=== PATIENT | female | born 1970 | race Two or more races ===

== ENCOUNTER 2020-07-15 19:33 | Inpatient (IN) | payer MEDICAID ==
[~2020-07-15] VITALS: Ht 167.6 cm; Wt 65.1 kg
--- NOTE | 2020-07-15 19:33 | NUR ---
PRECEPTOR RN: INITIAL PT CONTACT. PT PRESENTS TO ED C/O N/V/D X4 HOURS. PT ALSO C/O SERRATO, "FEELS LIKE A MIGRAINE STARTING UP." ALSO C/O "LITTLE BIT OF DARK RED COLOR TO MY STOOL." PIV STARTED EN ROUTE AND PT GIVEN APPROX 250ML NS. PT MOVED FROM EMS [place] TO ED [place], [place], ANTONIO. PT PLACED ON CONTINUOUS PULSE OX AND CARDIAC MONITORING. CALL LIGHT AND BELONGINGS WITHIN REACH. ERP AT BEDSIDE.
[2020-07-15] MEDS ORDERED: METOCLOPRAMIDE 5 MG/ML, 2ML ONE (19:54)
[2020-07-15] MEDS ORDERED: DIPHENHYDRAMINE 50 MG/ML, 1ML ONE (19:54)
--- NOTE | 2020-07-15 19:59 | NUR ---
PT MEDICATED, RESTING COMFORTABLY ON GURNEY, DENIES NEEDS AT THIS TIME
[2020-07-15] MEDS ORDERED: METOCLOPRAMIDE 5 MG/ML, 2ML IVPush ONE (20:00)
[2020-07-15] MEDS ORDERED: DIPHENHYDRAMINE 50 MG/ML, 1ML IV ONE (20:00)
[2020-07-15] MEDS ORDERED: SODIUM CHLORIDE FLUSH 10ML SYR IVF ONE (20:00)
[2020-07-15] MEDS ORDERED: SODIUM CHLORIDE 0.9% 1,000ML IVBOLUS ONE ×2 (20:00→21:00)
[2020-07-15 20:03] LABS: MEAN CORPUSCULAR HEMOGLOBIN 30.7 pg (27.0-34.8); MEAN CORPUSCULAR HGB CONC 33.6 g/dL (32.4-35.8); MEAN PLATELET VOLUME 9.3 fL (7.4-10.4); PLATELET COUNT 188 x10^3/uL (130-400); RED BLOOD COUNT 4.51 x10^6/uL (3.82-5.3); RED CELL DISTRIBUTION WIDTH 13.9 % (9.6-15.2)
[2020-07-15 20:12] LABS: ALANINE AMINOTRANSFERASE 17 U/L (12-78); ALBUMIN 3.4 g/dL (3.4-5.0); ANION GAP 3 mmol/L (5-15); CALCIUM 8.3 mg/dL (8.5-10.1); CHLORIDE 109 mmol/L (98-107); CREATININE 0.78 mg/dL (0.55-1.02)
[2020-07-15 20:14] LABS: ALKALINE PHOSPHATASE 44 U/L (45-117); BILIRUBIN,TOTAL 0.7 mg/dL (0.2-1.0); TOTAL PROTEIN 6.5 g/dL (6.4-8.2)
[2020-07-15 20:26] LABS: BAND#(MANUAL) 3.61 x10^3/uL; BANDS%(MANUAL) 23 % (0-7); LYMPH#(MANUAL) 0.94 x10^3/uL (1-3.4); LYMPHS% (MANUAL) 6 % (22-44); MONOS#(MANUAL) 0.94 x10^3/uL (0.3-2.7); MONOS% (MANUAL) 6 % (2-9); SEG#(MANUAL) 10.21 x10^3/uL (1.8-6.8); SEGS% (MANUAL) 65 % (42-75)
[2020-07-15 20:27] LABS: <PLATELET ESTIMATE> ADEQUATE; <PLT MORPHOLOGY> NORMAL PLT MORPH; <RBC MORPHOLOGY> NORMAL
[2020-07-15] MEDS ORDERED: OMNIPAQUE 350 MG/ML, 100ML BOTTLE ONE (20:30)
[2020-07-15] MEDS ORDERED: PIPERACILLIN/TAZO 3.375 GM in DEXTROSE 5% 50 ML IVPB ONE (21:00)
--- NOTE | 2020-07-15 21:04 | NUR ---
BLOOD CULTURES COLLECTED, ABX STARTED, PT RESTING COMFORTABLY ON BED, PT STATES SHE IS FEELING A LITTLE BETTER, DENIES NEEDS AT THIS TIME
--- NOTE | 2020-07-15 21:56 | NUR ---
THIS RN TOOK PT TO THE BATHROOM, SENT UA, GOT PT PILLOW AND WARM BLANKET, DENIES ANY MORE NEEDS AT THIS TIME
[2020-07-15] MEDS ORDERED: MORPHINE SULFATE 4 MG/ML, 1ML ONE ×2 (22:08→22:47)
[2020-07-15 22:09] LABS: MICROSCOPIC NOT IND
[2020-07-15] MEDS: MORPHINE SULFATE 4 MG/ML, 1ML IVPush PRN ×2 (22:11→22:49)
[2020-07-15] MEDS ORDERED: ONDANSETRON 2MG/ML, 2ML ONE (22:47)
--- NOTE | 2020-07-15 22:54 | NUR ---
HOSPITALIST AT BEDSIDE, PT MEDICATED, RESTING ON GURNEY, DENIES NEEDS AT THIS TIME
[2020-07-15] MEDS ORDERED: SODIUM CHLORIDE 0.9% 1,000 ML IV ONE (23:00)
[2020-07-15] MEDS ORDERED: MORPHINE SULFATE 4 MG/ML, 1ML IVPush PRN (23:00)
[2020-07-15] MEDS ORDERED: ONDANSETRON 2MG/ML, 2ML IVPush PRN (23:00)
--- NOTE | 2020-07-15 23:37 | NUR ---
REPORT CALLED TO SHANNON PT RESTING ON LEONID, DENIES NEEDS AT THIS TIME
[2020-07-16] MEDS ORDERED: ONDANSETRON 2MG/ML, 2ML IVPush PRN
[2020-07-16] MEDS ORDERED: ACETAMINOPHEN 325 MG TABLET PO PRN
[2020-07-16 00:10] VITALS: BP 137/73
[2020-07-16] MEDS: NS + 20MEQ KCL 1,000 ML IV SCH ×3 (00:37→16:23)
[2020-07-16] MEDS ORDERED: MAGNESIUM SULFATE PMX 2GM/50ML 50 ML IV ONE ×2 (01:00→18:30)
[2020-07-16 01:28] LABS: CLOSTRIDIUM DIFFICILE ANTIGEN NEGATIVE; CLOSTRIDIUM DIFFICILE TOXIN NEGATIVE (Negative)
[2020-07-16] MEDS: PIPERACILLIN/TAZO 3.375 GM in DEXTROSE 5% 50 ML IV SCH ×4 (02:50→21:04)
[2020-07-16 03:10] VITALS: BP 130/72
[2020-07-16 05:21] LABS: ANION GAP 3 mmol/L (5-15); BASOPHILS % (AUTO) 0 % (0-1); CALCIUM 6.7 mg/dL (8.5-10.1); CHLORIDE 110 mmol/L (98-107); EOSINOPHILS % (AUTO) 4 % (1-7); LYMPHOCYTES % (AUTO) 16 % (22-44); MEAN CORPUSCULAR HEMOGLOBIN 31.5 pg (27.0-34.8); MEAN CORPUSCULAR HGB CONC 34.1 g/dL (32.4-35.8); MEAN PLATELET VOLUME 9.6 fL (7.4-10.4); MONOCYTES % (AUTO) 9 % (2-9); NEUTROPHILS % (AUTO) 70 % (42-75); PLATELET COUNT 162 x10^3/uL (130-400); RED BLOOD COUNT 3.97 x10^6/uL (3.82-5.3); RED CELL DISTRIBUTION WIDTH 13.8 % (9.6-15.2)
[2020-07-16 05:24] LABS: CREATININE 0.79 mg/dL (0.55-1.02)
[2020-07-16 06:59] VITALS: BP 116/70
[2020-07-16 09:04] LABS: CRYPTOSPORIDIUM ANTIGEN Negative (Negative)
[2020-07-16 14:05] VITALS: BP 117/74
[2020-07-16] MEDS: morphine SULFATE 10 MG/ML, 1ML IVPush PRN ×2 (14:57→21:11)
[2020-07-16 20:13] VITALS: BP 143/89
[2020-07-16] MEDS: LACTOBACILLUS 1GM/ PACKET PO SCH (21:04)
[2020-07-17 00:44] VITALS: BP 120/71
[2020-07-17] MEDS: PIPERACILLIN/TAZO 3.375 GM in DEXTROSE 5% 50 ML IV SCH ×4 (03:27→21:05)
[2020-07-17 05:21] LABS: BASOPHILS % (AUTO) 0 % (0-1); EOSINOPHILS % (AUTO) 8 % (1-7); LYMPHOCYTES % (AUTO) 31 % (22-44); MEAN CORPUSCULAR HEMOGLOBIN 31.5 pg (27.0-34.8); MEAN CORPUSCULAR HGB CONC 34.2 g/dL (32.4-35.8); MEAN PLATELET VOLUME 9.4 fL (7.4-10.4); MONOCYTES % (AUTO) 9 % (2-9); NEUTROPHILS % (AUTO) 52 % (42-75); PLATELET COUNT 156 x10^3/uL (130-400); RED BLOOD COUNT 3.97 x10^6/uL (3.82-5.3); RED CELL DISTRIBUTION WIDTH 14.2 % (9.6-15.2)
[2020-07-17 05:27] LABS: CHLORIDE 110 mmol/L (98-107)
[2020-07-17 05:31] LABS: ANION GAP 3 mmol/L (5-15); CREATININE 0.74 mg/dL (0.55-1.02)
[2020-07-17 07:09] VITALS: BP 138/76
[2020-07-17] MEDS: LACTOBACILLUS 1GM/ PACKET PO SCH ×3 (07:46→21:05)
[2020-07-17] MEDS: morphine SULFATE 10 MG/ML, 1ML IVPush PRN ×3 (07:46→19:58)
[2020-07-17 14:06] VITALS: BP 151/91
[2020-07-17 20:01] VITALS: BP 144/84
[2020-07-18] MEDS: PIPERACILLIN/TAZO 3.375 GM in DEXTROSE 5% 50 ML IV SCH ×4 (03:06→20:40)
[2020-07-18 03:08] VITALS: BP 151/92
[2020-07-18 04:43] LABS: BASOPHILS % (AUTO) 1 % (0-1); EOSINOPHILS % (AUTO) 9 % (1-7); LYMPHOCYTES % (AUTO) 25 % (22-44); MEAN CORPUSCULAR HEMOGLOBIN 31.6 pg (27.0-34.8); MEAN CORPUSCULAR HGB CONC 34.4 g/dL (32.4-35.8); MEAN PLATELET VOLUME 9.7 fL (7.4-10.4); MONOCYTES % (AUTO) 8 % (2-9); NEUTROPHILS % (AUTO) 58 % (42-75); PLATELET COUNT 164 x10^3/uL (130-400); RED BLOOD COUNT 4.23 x10^6/uL (3.82-5.3); RED CELL DISTRIBUTION WIDTH 13.8 % (9.6-15.2)
[2020-07-18 04:57] LABS: ANION GAP 6 mmol/L (5-15); CALCIUM 7.8 mg/dL (8.5-10.1); CHLORIDE 107 mmol/L (98-107); CREATININE 0.73 mg/dL (0.55-1.02)
[2020-07-18 07:57] VITALS: BP 149/83
[2020-07-18] MEDS ORDERED: POTASSIUM CHLORIDE 20 MEQ TAB.ER.PRT PO ONE (08:30)
[2020-07-18] MEDS: morphine SULFATE 10 MG/ML, 1ML IVPush PRN ×2 (08:43→15:09)
[2020-07-18 12:55] VITALS: BP 134/101
[2020-07-18] MEDS: PINK BISMUTH 87.33 MG/5 ML ORAL SUSP PO SCH ×2 (15:55→22:59)
[2020-07-18 18:43] VITALS: BP 136/88
[2020-07-19 01:25] VITALS: BP 132/84
[2020-07-19] MEDS: PIPERACILLIN/TAZO 3.375 GM in DEXTROSE 5% 50 ML IV SCH ×4 (02:47→20:41)
[2020-07-19] MEDS: PINK BISMUTH 87.33 MG/5 ML ORAL SUSP PO SCH ×6 (02:48→23:11)
[2020-07-19 08:50] VITALS: BP 132/83
[2020-07-19 09:09] LABS: ANION GAP 5 mmol/L (5-15); CALCIUM 8.5 mg/dL (8.5-10.1); CHLORIDE 106 mmol/L (98-107); CREATININE 0.95 mg/dL (0.55-1.02)
[2020-07-19 14:18] VITALS: BP 165/100
[2020-07-19 16:15] VITALS: BP 137/89
[2020-07-19] MEDS ORDERED: POTASSIUM CHLORIDE 20 MEQ TAB.ER.PRT ONE (17:33)
[2020-07-19] MEDS: POTASSIUM CHLORIDE 20 MEQ TAB.ER.PRT PO SCH (17:48)
[2020-07-19] MEDS: MOVIPREP POWDER 1 PREP KIT PO SCH (17:49)
[2020-07-19 18:50] VITALS: BP 166/97
[2020-07-20 01:16] VITALS: BP 138/84
[2020-07-20] MEDS: PIPERACILLIN/TAZO 3.375 GM in DEXTROSE 5% 50 ML IV SCH ×4 (03:07→21:23)
[2020-07-20] MEDS: PINK BISMUTH 87.33 MG/5 ML ORAL SUSP PO SCH ×6 (03:07→23:34)
[2020-07-20] MEDS: MOVIPREP POWDER 1 PREP KIT PO SCH (04:07)
[2020-07-20 05:48] LABS: HCT (SEDRATE) 44.7 % (34.6-47.8)
[2020-07-20 05:55] LABS: CHLORIDE 105 mmol/L (98-107)
[2020-07-20 05:59] LABS: ANION GAP 9 mmol/L (5-15); C-REACTIVE PROTEIN, QUANT 0.21 mg/dL (0.02-0.49); CALCIUM 8.4 mg/dL (8.5-10.1); CREATININE 0.82 mg/dL (0.55-1.02)
[2020-07-20 07:15] VITALS: BP 148/90
[2020-07-20] MEDS: POTASSIUM CHLORIDE 20 MEQ TAB.ER.PRT PO SCH ×2 (08:00→16:42)
[2020-07-20 08:45] LABS: HCG UR SG 1.015 (1.003-1.030)
[2020-07-20] MEDS ORDERED: CHLORHEXIDINE 15 ML UDC ONE (09:29)
[2020-07-20] MEDS ORDERED: CHLORHEXIDINE 15 ML UDC PO ONE (09:30)
[2020-07-20] MEDS ORDERED: ACETAMINOPHEN 325 MG TABLET PO PRN ×2 (10:30→12:00)
[2020-07-20] MEDS ORDERED: FENTANYL PF 100 MCG/2ML IV PRN ×2 (10:30→12:00)
[2020-07-20] MEDS ORDERED: ONDANSETRON 2MG/ML, 2ML IVPush PRN ×2 (10:30→12:00)
[2020-07-20] MEDS ORDERED: FENTANYL PF 100 MCG/2ML ONE (10:38)
[2020-07-20] MEDS ORDERED: PROMETHAZINE 25 MG/ML, 1ML IVPush PRN (12:00)
[2020-07-20] MEDS ORDERED: hydrALAzine 20 MG/ML, 1ML IV PRN (12:00)
[2020-07-20] MEDS ORDERED: DIPHENHYDRAMINE 50 MG/ML, 1ML IVPush PRN (12:00)
[2020-07-20] MEDS ORDERED: MEPERIDINE/PF 25MG/0.5ML IVPush PRN (12:00)
[2020-07-20] MEDS ORDERED: EPHEDRINE 50 MG/ML, 1ML IVPush PRN (12:00)
[2020-07-20] MEDS ORDERED: OXYcodone 5 MG/5 ML ORAL.SOL UDC PO PRN (12:00)
[2020-07-20] MEDS ORDERED: LABETALOL 5MG/ML, 20ML IV PRN (12:00)
[2020-07-20] MEDS ORDERED: KETOROLAC 30 MG/1 ML IV PRN (12:00)
[2020-07-20] MEDS ORDERED: METOPROLOL 1 MG/ML, 5ML IV PRN (12:00)
[2020-07-20] MEDS ORDERED: HALOPERIDOL 5 MG/ML IV PRN (12:00)
[2020-07-20] MEDS ORDERED: METOCLOPRAMIDE 5 MG/ML, 2ML IVPush PRN (12:00)
[2020-07-20 12:35] VITALS: BP 150/92
[2020-07-20] MEDS: LOPERAMIDE 2 MG CAPSULE PO SCH ×2 (17:17→23:33)
[2020-07-20 19:22] VITALS: BP 149/90
[2020-07-21 01:15] VITALS: BP 143/84
[2020-07-21] MEDS: PIPERACILLIN/TAZO 3.375 GM in DEXTROSE 5% 50 ML IV SCH ×2 (03:10→08:50)
[2020-07-21] MEDS: PINK BISMUTH 87.33 MG/5 ML ORAL SUSP PO SCH ×3 (04:44→12:00)
[2020-07-21] MEDS: LOPERAMIDE 2 MG CAPSULE PO SCH ×2 (05:39→11:19)
[2020-07-21 07:25] VITALS: BP 146/89
[2020-07-21] MEDS ORDERED: SUMATRIPTAN 100 MG TABLET PO PRN (08:00)
[2020-07-21] MEDS: POTASSIUM CHLORIDE 20 MEQ TAB.ER.PRT PO SCH (08:48)
[2020-07-21] MEDS ORDERED: LOPE2CAP PO (10:36)
[2020-07-21] MEDS ORDERED: [UNRECOGNIZED DRUG - CODE] PO (10:36)
== END 2020-07-21 14:56 | disposition home or self-care (01) | DRG 392 ==
LOC: ED 20:03 → EDIP 22:50 → 3N 23:46
PROVIDERS: ADMIT Internal Medicine; ATTEND Internal Medicine
PROC: 0DBL8ZZ Excision of Transverse Colon, Via Natural or Artificial Opening Endoscopic (ICD-10-PCS; 2020-07-20)
PROC: 0DBN8ZZ Excision of Sigmoid Colon, Via Natural or Artificial Opening Endoscopic (ICD-10-PCS; 2020-07-20)
PROC: 0DBP8ZZ Excision of Rectum, Via Natural or Artificial Opening Endoscopic (ICD-10-PCS; 2020-07-20)
PROC: 0DBM8ZZ Excision of Descending Colon, Via Natural or Artificial Opening Endoscopic (ICD-10-PCS; 2020-07-20)
PROC: 0DBH8ZZ Excision of Cecum, Via Natural or Artificial Opening Endoscopic (ICD-10-PCS; 2020-07-20)
PROC: 0DBK8ZZ Excision of Ascending Colon, Via Natural or Artificial Opening Endoscopic (ICD-10-PCS; principal; 2020-07-20 10:00)
DX: K52.9 Noninfective gastroenteritis and colitis, unspecified (principal); Z20.822 Contact with and (suspected) exposure to COVID-19; D25.9 Leiomyoma of uterus, unspecified; D64.9 Anemia, unspecified; D72.825 Bandemia; E87.6 Hypokalemia; F12.90 Cannabis use, unspecified, uncomplicated; F15.10 Other stimulant abuse, uncomplicated; G43.909 Migraine, unspecified, not intractable, without status migrainosus; K42.9 Umbilical hernia without obstruction or gangrene; K63.5 Polyp of colon; K64.8 Other hemorrhoids; N92.0 Excessive and frequent menstruation with regular cycle; Z87.891 Personal history of nicotine dependence
CPT/HCPCS: 36415; 74177; 80048; 80053; 81003; 81025; 83605; 83690; 83735; 85025; 85651; 86140; 87040; 87046; 87324; 87328; 87329; 87427; 87635; 88305; 89055; 96361; 96374; 96375; 99285; G0378; J2405; J2543; J3010; J3480; Q9967; J1200; J2270; J2765; J3475; J7030

== ENCOUNTER 2020-08-20 03:30 | Emergency (ER) | payer MEDICAID ==
[~2020-08-20] VITALS: Ht 168.9 cm; Wt 67.2 kg
[~2020-08-20 03:30] MED LIST: LOPE2CAP PO; [UNRECOGNIZED DRUG - CODE] PO
[2020-08-20 03:38] VITALS: BP 143/89
--- NOTE | 2020-08-20 04:38 | NUR ---
patient left and signed AMA.
== END 2020-08-20 04:39 | disposition left against medical advice (07) ==
LOC: ED 04:33
DX: Z53.21 Procedure and treatment not carried out due to patient leaving prior to being seen by health care provider (principal)

== ENCOUNTER 2020-08-26 03:01 | Emergency (ER) | payer MEDICAID ==
[~2020-08-26] VITALS: Ht 167.6 cm; Wt 66.2 kg
--- NOTE | 2020-08-26 04:32 | NUR ---
CLOTH HAULER: PT. TO ROOM FROM LOBBY AT THIS TIME.
--- NOTE | 2020-08-26 04:37 | NUR ---
INITIAL PT CONTACT. PT PRESENTS TO ED C/O "I NEED TO GET TESTED FOR ALL KINDS OF STD'S, I'VE BEEN EXPOSED." PT DENIES ANY SYMPTOMS AT THIS TIME. PT SITTING UPRIGHT ON ALLISON JAQUEZ, VSS. PT DENIES ANY NEEDS AT THIS TIME. CALL LIGHT AND BELONGINGS WITHIN REACH. AWAITING ERP.
[2020-08-26 06:30] VITALS: BP 145/72
[2020-08-26] MEDS ORDERED: CEFTRIAXONE 1,000 MG IM ONE (06:30)
[2020-08-26] MEDS ORDERED: AZITHROMYCIN 500 MG TABLET PO ONE (06:30)
[2020-08-26] MEDS ORDERED: CEFTRIAXONE 1,000 MG ONE (06:33)
[2020-08-26] MEDS ORDERED: AZITHROMYCIN 250 MG TABLET ONE (06:33)
--- NOTE | 2020-08-26 07:01 | NUR ---
BEDSIDE REPORT FROM ROMERO KRUSE FOR TRANSFER OF PATIENT CARE.
--- NOTE | 2020-08-26 07:01 | NUR ---
REPORT GIVEN TO TERESA JASSO
--- NOTE | 2020-08-26 07:33 | NUR ---
Patient given discharge instructions and they have confirmed that they understand the instructions. Patient ambulatory with steady gait. NAD, all questions answered appropriately, denies additional needs at this time. No personal belongings left in room after discharge.
== END 2020-08-26 07:34 | disposition home or self-care (01) ==
LOC: ED 05:46
DX: A64 Unspecified sexually transmitted disease (principal); Z87.891 Personal history of nicotine dependence
CPT/HCPCS: 36415; 84703; 86592; 86803; 87491; 87591; 87806; 96372; 99283; J0696; G0475